=== PATIENT | male | born 1995 | race Caucasian/White ===

== ENCOUNTER 2016-07-29 18:02 | Emergency (ER) | payer BC ==
[2016-07-29 18:43] VITALS: BP 139/81
[2016-07-29] MEDS ORDERED: Azithromycin TAB* 250 MG PO ONE (19:33)
[2016-07-29] MEDS ORDERED: cefTRIAXone VIAL(*) 250 MG VIAL IM ONE (19:33)
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
[2016-07-29] MEDS ORDERED: Lidocaine 1% MPF* 2 ML VIAL ONE (19:44)
== END 2016-07-29 20:23 | disposition home or self-care (01) ==
LOC: UCCORT 18:02
DX: Z20.2 Contact with and (suspected) exposure to infections with a predominantly sexual mode of transmission (principal); Z72.0 Tobacco use
CPT/HCPCS: 87491; 87591; 96372; 99212; A9270-GY; G0463; J0696

== ENCOUNTER 2017-03-05 16:17 | Emergency (ER) | payer BC ==
[2017-03-05 16:30] VITALS: BP 144/77
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
== END 2017-03-05 17:19 | disposition home or self-care (01) ==
LOC: UCCORT 16:17
DX: S02.2XXA Fracture of nasal bones, initial encounter for closed fracture (principal); W50.0XXA Accidental hit or strike by another person, initial encounter; Y93.83 Activity, rough housing and horseplay; Y92.9 Unspecified place or not applicable; Z72.0 Tobacco use
CPT/HCPCS: 70160; 99211; G0463